=== PATIENT | male | born 1975 | race Caucasian/White ===

== ENCOUNTER 2016-11-27 09:57 | Emergency (ER) | payer MEDICAID, OTHER ==
[~2016-11-27] VITALS: Ht 170.2 cm; Wt 67.7 kg
[~2016-11-27 09:57] MED LIST: NAPROSYN375 MG PO; NEURONTIN100 MG PO; ULTRAM50 MG PO; [UNRECOGNIZED DRUG - REMARK]
[2016-11-27 10:04] VITALS: BP 128/83
--- NOTE | 2016-11-27 10:10 | NUR ---
41/m bib self for INTERMITTENT FACIAL ASYMMETRY INITIATED BY SEVERE HEADACHES --X 3WKS AGO SELF LIMITING "HRS." LEFT UPPER ARM SHARP PAIN and itching. CURRENTLY NO SLURRED SPEECH, NO FACIAL ASYMMETRY, TONGUE MIDLINE, A/O X4, NO DRIFT. PT AAOX4. ITCHING NOTED TO VARIOUS PARTS OF BODY. ER MD MADE AWARE. SAFETY AND COMFORT MEAUSRES PROVIDED.
--- NOTE | 2016-11-27 10:15 | NUR ---
Patient being evaluated by physician at bedside.
[2016-11-27] MEDS ORDERED: KETOROLAC 30 MG/ML VIAL IM ONE (10:20)
[2016-11-27] MEDS ORDERED: ONDANSETRON 4 MG TAB PO ONE (10:20)
--- NOTE | 2016-11-27 11:20 | NUR ---
ORANGE SURVEY GIVEN TO PT.
[2016-11-27 11:40] VITALS: BP 136/80
== END 2016-11-27 11:40 | disposition home or self-care (01) ==
LOC: MED 09:57
DX: M79.602 Pain in left arm (principal); R51 Headache; R11.0 Nausea
CPT/HCPCS: 82948; 96372; 99283; J1885; Q0162; Q0163